=== PATIENT | male | born 1935 | race Caucasian/White ===

== ENCOUNTER → 2016-08-17 | Outpatient (CLI) | payer OTHER, BC | LOC: MMPC 09:00 | DX: J20.9 Acute bronchitis, unspecified (principal); R06.2 Wheezing; Z87.891 Personal history of nicotine dependence | CPT/HCPCS: 99213; G0463 ==

== ENCOUNTER → 2016-08-24 | Outpatient (CLI) | payer OTHER, BC | LOC: MMPC 09:00 | PROVIDERS: ATTEND Physician Assistant Medical | DX: R05 Cough (principal); R09.89 Other specified symptoms and signs involving the circulatory and respiratory systems; R50.9 Fever, unspecified | CPT/HCPCS: 99213; G0463 ==

== ENCOUNTER → 2016-09-08 | Outpatient (CLI) | payer OTHER, BC | LOC: MMPC 09:00 | DX: I10 Essential (primary) hypertension (principal); G25.81 Restless legs syndrome; E03.9 Hypothyroidism, unspecified; G47.30 Sleep apnea, unspecified; F32.9 Major depressive disorder, single episode, unspecified; F03.90 Unspecified dementia, unspecified severity, without behavioral disturbance, psychotic disturbance, mood disturbance, and anxiety | CPT/HCPCS: 99213; G0463 ==

== ENCOUNTER → 2017-01-06 | Outpatient (CLI) | payer OTHER, BC | LOC: MOB LAB 12:07 | DX: E03.9 Hypothyroidism, unspecified (principal); I10 Essential (primary) hypertension; E55.9 Vitamin D deficiency, unspecified; G47.30 Sleep apnea, unspecified; G25.81 Restless legs syndrome; F03.90 Unspecified dementia, unspecified severity, without behavioral disturbance, psychotic disturbance, mood disturbance, and anxiety; F32.9 Major depressive disorder, single episode, unspecified | CPT/HCPCS: 36415; 84443; 99213; G0463 ==

== ENCOUNTER → 2017-02-23 | Outpatient (CLI) | payer OTHER, BC ==
--- NOTE | 2017-02-23 11:41 | EKG ---
[address] [address] Measurements Intervals [place] Rate: 51 P: VT: 0 QRS: -33 QRSD: 93 T: -22 QT: 452 QTc: 430 Interpretive Statements SECOND DEGREE AV BLOCK NONSPECIFIC ST & T-WAVE ABNORMALITY No previous ECG available for comparison Electronically Signed On 02-23-17 13:23:44 MDT by Jamar Crabtree [id number]
[2017-02-23 11:51] LABS: BASOPHILS % (AUTO) 1.5 % (0-1); EOSINOPHILS # (AUTO) 0.18 10*3/UL; EOSINOPHILS % (AUTO) 2.7 % (0-8); HEMATOCRIT 44.2 % (42.0-52.0); HEMOGLOBIN 15.1 g/dL (14.0-18.0); LYMPHOCYTES # (AUTO) 1.54 10*3/uL; MEAN CORPUSCULAR HEMOGLOBIN 31.1 PG (27-31); MEAN CORPUSCULAR HGB CONC 34.2 g/dL (33-37); MEAN CORPUSCULAR VOLUME 91.1 FL (80-90); MEAN PLATELET VOLUME 9.8 FL (7.4-12.2); MONOCYTES # (AUTO) 0.56 10*3/UL (0.3-0.8); MONOCYTES % (AUTO) 8.5 % (5-15); NEUTROPHILS # (AUTO) 4.18 10*3/UL; NEUTROPHILS % (AUTO) 63.6 % (50-80); RED BLOOD COUNT 4.85 10^6/uL (4.70-6.10)
[2017-02-23 11:52] LABS: PLATELET MORPHOLOGY COMMENT NORMAL MORPHOLOGY (NORM); RBC MORPHOLOGY COMMENT NORMAL MORPHOLOGY (NORM); WBC MORPHOLOGY COMMENT NORMAL MORPHOLOGY (NORM)
[2017-02-23 11:57] LABS: BUN/CREATININE RATIO 22.22 (6-20); C-REACTIVE PROTEIN 0.7 mg/dL (0.0-0.9); CALCIUM 8.8 mg/dL (8.7-10.7)
[2017-02-23 12:07] LABS: CREATINE KINASE MB 2.77 NG/ML (0.00-5.00); TROPONIN I 0.017 ng/mL (< 0.040)
--- NOTE | 2017-02-23 12:59 | DI ---
PA /LATERAL CHEST X-RAY, 02/23/2017 11:06 AM : Clinical History: Left arm pain Previous Exam: None at this facility. There is no acute soft tissue or bony abnormality. Heart size is normal. Lungs are clear. Mediastinal structures are normal. There are no pulmonary nodules. IMPRESSION: Normal chest x-ray.
--- NOTE | 2017-02-23 13:00 | DI ---
XR HUMERUS MIN 2VW,02/23/2017 11:06 AM: Clinical History: Left arm pain Previous Exam: None at this facility. Findings: Multiple views of the left arm are obtained, and demonstrate anatomic alignment without fractures. Th e adjacent left lung and chest wall are unremarkable. Impression: Normal left humerus.
== END ==
LOC: MOB RAD 11:09
PROVIDERS: ATTEND Physician Assistant
DX: M79.622 Pain in left upper arm (principal); R07.9 Chest pain, unspecified; I44.1 Atrioventricular block, second degree
CPT/HCPCS: 71020; 73060; 80053; 82553; 83690; 84484; 85025; 86140; 93005; 93010

== ENCOUNTER → 2017-03-01 | Outpatient (CLI) | payer OTHER, BC ==
--- NOTE | 2017-03-03 13:15 | HOLTER ---
[facility] [place] Interpretive Statements Was ordered as a 48 hour holter and downloaded 24 hours of recorded tracings Twenty four hour holter recorded for left arm pain and prior 2nd degree AV block. Minimal activity recorded with no recorded symptoms. The average sinus rate was 56 with minimum rate of 37 at 4:30 AM and maximum sinus rate of 91 at 1:53 PM. There were 48728 beats recorded with 46987 normal beats. There were 428 multifocal singlet VPCs with 3 couplets and no runs. There were 316 PACs with 292 singlets and 12 pairs with no runs. Rare junctional beats were seen and there were no diagnostic pauses. Baseline tracings showed 1mm flat ST depression with prolonged QTC. No increase in ST depression was seen with exercise or faster heart rates. IMP: Abnormal 24 hour holter with occassional multifocal VPCs with rare couplets but no VT, and rare PACs with occassional pairs and no runs. Baseline 1mm ST depression was noted with prolonged QTc greater than 460 msec with no increase in ST depression at faster heart rates or exercise. No symptoms recorded. Recommend nuclear treadmill stress test. Electronically Signed On 03-03-17 17:31:31 MDT by Jamar Crabtree [id number]
== END ==
LOC: RT 10:29
DX: R94.31 Abnormal electrocardiogram [ECG] [EKG] (principal)
CPT/HCPCS: 93225; 93226; 93227

== ENCOUNTER 2018-05-19 19:16 | Inpatient (IN) ==
[2018-05-19] MEDS ORDERED: Sodium Chloride 0.9% 1,000 ML PRIMARY IV ONE ×2 (20:03→23:53)
[2018-05-19] MEDS ORDERED: IPRATROPIUM/ALBUTEROL SULFATE 3 ML NEB NEB ONE (20:03)
--- NOTE | 2018-05-19 20:25 | EKG ---
Measurements Intervals [place] Rate: 64 P: 19 MS: 217 QRS: -47 QRSD: 90 T: -1 QT: 433 QTc: 443 Interpretive Statements SINUS RHYTHM WITH MARKED SINUS ARRHYTHMIA WITH FIRST DEGREE AV BLOCK INFERIOR MYOCARDIAL INFARCTION [40+ ms Q WAVE AND/OR ST/T ABNORMALITY IN II/aVF], PROBABLY OLD Compared to ECG 11/30/2017 11:15:01 Myocardial infarct finding now present Sinus bradycardia no longer present Left-axis deviation no longer present T-wave abnormality no longer present Electronically Signed On 05-20-18 08:47:34 MDT by Matthew Hinton MD [id number]
[2018-05-19 20:29] LABS: BASOPHILS # (AUTO) 0.03 10*3/UL; BASOPHILS % (AUTO) 0.2 % (0-1); EOSINOPHILS % (AUTO) 0.6 % (0-8); Hematocrit [HCT] 42.9 % (42.0-52.0); Hemoglobin [HGB] 14.9 g/dL (14.0-18.0); LYMPHOCYTES # (AUTO) 1.64 10*3/uL; MEAN CORPUSCULAR HEMOGLOBIN 32.2 PG (27-31); MEAN CORPUSCULAR HGB CONC 34.7 g/dL (33-37); MEAN CORPUSCULAR VOLUME 92.7 FL (80-90); MEAN PLATELET VOLUME 9.2 FL (7.4-12.2); MONOCYTES # (AUTO) 1.51 10*3/UL (0.3-0.8); MONOCYTES % (AUTO) 9.7 % (5-15); NEUTROPHILS # (AUTO) 12.21 10*3/UL; NEUTROPHILS % (AUTO) 78.7 % (50-80); RED BLOOD COUNT 4.63 10^6/uL (4.70-6.10)
[2018-05-19 20:30] LABS: BILIRUBIN,URINE SMALL (NEG); CLARITY,URINE CLOUDY (CLEAR); COLOR,URINE RED (Y); GLUCOSE, URINE (UA) NEGATIVE (NEG); OCCULT BLOOD,URINE LARGE (NEG); PROTEIN,URINE 100 mg/dl (NEG); UROBILINOGEN,URINE 0.2 EU/dL (0.2)
[2018-05-19 20:31] LABS: PLATELET MORPHOLOGY COMMENT NORMAL MORPHOLOGY (NORM); RBC MORPHOLOGY COMMENT NORMAL MORPHOLOGY (NORM); WBC MORPHOLOGY COMMENT NORMAL MORPHOLOGY (NORM)
[2018-05-19 20:38] LABS: BLOOD UREA NITROGEN 18 mg/dL (7-22); BUN/CREATININE RATIO 10.58 (6-20); RBC,URINE >100 /hpf; SERUM ALBUMIN 4.1 g/dL (3.5-4.8); SQUAMOUS EPITHELIAL CELL,UR FEW; URINE SAMPLE TYPE VOIDED SPECIMEN; WBC,URINE 0-2
--- NOTE | 2018-05-19 21:25 | DI ---
PA /LATERAL CHEST, 05/19/2018 8:03 PM : Clinical History: Fever. Shortness of breath. Previous Exam: 11/16/2017. There is no acute soft tissue or bony abnormality. Heart size is normal. Lungs are clear. Mediastinal structures are normal. There is a moderate size hiatal hernia. There are no pulmonary nodules. Reading: Normal chest x-ray. There is a moderate sized hiatal hernia.
--- NOTE | 2018-05-19 23:18 | DI ---
EXAM: US Retroperitoneal Limited, Renal CLINICAL HISTORY: ITS.REASON hematuria Physician Notes: Tech Comments: TECHNIQUE: Real-time ultrasound of the retroperitoneum (limited) with image documentation. COMPARISON: No relevant prior studies available. FINDINGS: Right kidney: Normal in size, 12.1 cm long. No stones. No solid mass. No hydronephrosis. Left kidney: Normal in size, 12.3 cm long.. No stones. No solid mass. No hydronephrosis. Bladder: Significant urinary retention. Postvoid residual volume is 202. 25 cc. The wall is also irregular. This could reflect trabeculation from chronic outlet obstruction. IMPRESSION: Urinary retention. 202 cc of postvoid residual urine. Irregular bladder wall likely reflects trabeculation from chronic outlet obstruction. Neoplasm and cystitis are not completely excluded. No hydronephrosis.
--- NOTE | 2018-05-20 00:30 | PDOC ---
HPI - History of Present Illness Date of Service: 05/20/18 Time of Service: 01:00 Chief Complaint: Vomiting and possibly diarrhea with some abdominal pain History of Present Illness: This is an 83 years old male with medical history significant for history of dementia, hypertension, hypothyroidism, paroxysmal A. fib who was brought to the hospital because he was not well. The daughter said that this morning he was complaining from body aches some abdominal pain felt sick the son-in-law gave him Tylenol in addition to his medication came back and check on him still was not feeling well at 11:30. He gave additional Tylenol. At one point in time he vomited and also possibly had diarrhea we are not sure about when was that. He continued to not feel well didn't eat well today brought him to the urgent care and from there they sent into the ER. In the ER he was not complaining from any symptoms because of his dementia but the blood tests showed elevated white count, hypokalemia and elevated creatinine and there was blood in the urine. An ultrasound showed some trabeculation of the bladder wall. Because of her multiple abnormalities he was admitted to the hospital. Currently patient denying symptoms. History was obtained from the family. Past Medical History Medical History: 1. Alzheimer dementia. 2. History of TIA. 3. Hypertension. 4. History of aortic stenosis moderate severe. 5. History of sleep apnea. 6. History of hypothyroidism. 7. History of paroxysmal A. fib. 8. History of coronary artery disease Surgical History: History of tonsillectomy Family History: Reviewed an Not Pertinent Past Social History: Used to smoke, occasionally drink, no drugs. Lives in assisted living with his . Tobacco Use: Former Smoker Do you dip or chew tobacco: No In the Past 12 Months, Have Used or Abuse Any of the Following Substance: None Alcohol Use: Occasionally Medication / Allergies Home Medications: Home Medications 3 Medication Instructions Recorded Confirmed Type nitroglycerin 0.4 mg sublingual 0.4 mg SL Q5M PRN tab 07/07/17 05/19/18 History tablet atorvastatin 10 mg tablet 10 mg PO QDAY #90 tab 01/26/18 05/19/18 Rx gabapentin 300 mg capsule 300 mg PO QHS #90 cap 01/26/18 05/19/18 Rx isosorbide mononitrate ER 60 mg 60 mg PO QDAY #90 tab 01/26/18 05/19/18 Rx tablet,extended release 24 hr losartan 100 mg tablet 100 mg PO QDAY #90 tab 01/26/18 05/19/18 Rx omeprazole 40 mg capsule,delayed 40 mg PO QDAY #90 cap 01/26/18 05/19/18 Rx release potassium chloride ER 10 mEq 10 meq PO BID #180 tab 01/26/18 05/19/18 Rx tablet,extended release(part/cryst) rivastigmine 13.3 mg/24 hour 13.3 mg TOPICAL QDAY #90 patch 01/26/18 05/19/18 Rx transdermal patch sertraline 100 mg tablet 100 mg PO QDAY #90 tab 01/26/18 05/19/18 Rx aspirin 81 mg tablet,delayed 81 mg PO QDAY #90 tab 01/28/18 05/19/18 Rx release cetirizine 10 mg tablet 10 mg PO QDAY #90 tab 01/28/18 05/19/18 Rx montelukast 10 mg tablet 10 mg PO QDAY #90 tab 01/28/18 05/19/18 Rx memantine 10 mg tablet 10 mg PO BID #180 tab 02/14/18 05/19/18 Rx chlorthalidone 25 mg tablet 12.5 mg PO QDAY #45 tab 05/02/18 05/19/18 Rx levothyroxine 75 mcg tablet 75 mcg PO QDAY #90 tab 05/02/18 05/19/18 Rx Allergies/Adverse Reactions: Allergies 3 Allergy/AdvReac Type Severity Reaction Status Date / Time Penicillins Allergy Anaphylaxis Verified 05/19/18 20:35 Review of Systems - Review of Systems ROS Unobtainable: Due to Mental Status Exam - Vitals Vital Signs: Vital Signs Temperature 97.1 F Temperature Source Temporal Artery Scan Pulse Rate [Pulse Oximeter] 72 Pulse Rate 71 Respiratory Rate 18 Blood Pressure [Left Arm] 118/73 Pulse Ox 91 Oxygen Delivery Method Room Air Height 5 ft 11 in Weight 208 lb - General General Appearance: No Acute Distress, Cooperative - Head Head Exam: Normal Inspection - Eye Eye Exam: POSITIVE: Normal Appearance - ENT ENT Exam: POSITIVE: Normal Exam - Neck Neck Exam: Normal Inspection - Respiratory Respiratory Exam: POSITIVE: Clear to Auscultation - Bilaterally - Cardiovascular Cardiovascular Exam: POSITIVE: RRR, Systolic Murmur - GI/Abdominal GI/Abdominal Exam: POSITIVE: Normal Bowel Sounds, Non Tender, Non Distended, Soft, No Organomegaly - Rectal Rectal Exam: POSITIVE: Deferred - External Exam: POSITIVE: Deferred - Extremities Extremities Exam: POSITIVE: Normal Inspection - Back Back Exam: POSITIVE: Normal Inspection - Neurological Neurological Exam: POSITIVE: Alert, CN II-XII Intact, No Facial Droop, Speech Intact / Clear, Moves All Extremities Equally - Psychiatric Psychiatric Exam: POSITIVE: Normal Affect - Integumentary Integumentary Exam: POSITIVE: Normal Color Results - Labs CBC and BMP: 05/20/18 08:05 05/20/18 08:05 - EKG Data -: EKG Interpreted by Me Rate: Normal EKG Shows Normal: Sinus Rhythm - EKG Data EKG Interpretation: Other (Sinus rhythm with premature a tear complex. Old Q waves in the inferior leads) - Imaging Status: Report Reviewed by Me (Chest ray Normal chest x-ray. There is a moderate sized hiatal hernia. US Urinary retention. 202 cc of postvoid residual urine. Irregular bladder wall likely reflects trabeculation from chronic outlet obstruction. Neoplasm and cystitis are not completely excluded. No hydronephrosis.) Assessment and Plan - Patient Problems (1) Febrile illness Current Visit: Yes Status: Acute Comment: Unclear etiology. Because of the multiple lab abnormalities and difficulty in getting accurate information because of his underlying dementia, I think will give him a dose of antibiotics and wait for the culture result. We 'll give him some fluids. Code(s): R50.9 - Fever, unspecified (2) Dementia Current Visit: No Status: Chronic Onset Date: 09/19/13 Comment: Same med Code(s): F03.90 - Unspecified dementia without behavioral disturbance (3) Hematuria Current Visit: Yes Status: Acute Comment: Will order a CT likely tomorrow without contrast. Code(s): R31.9 - Hematuria, unspecified (4) HTN (hypertension) Current Visit: No Status: Chronic Comment: Same med Code(s): I10 - Essential (primary) hypertension (5) Hypothyroidism Current Visit: No Status: Chronic Onset Date: 09/19/13 Comment: Same med Code(s): E03.9 - Hypothyroidism, unspecified (6) Elevated d-dimer Current Visit: Yes Status: Acute Comment: I think this is secondary to the bleeding itself and possibly age. The history suggests an infection rather than a PE. Code(s): R79.89 - Other specified abnormal findings of blood chemistry (7) Troponin I above reference range Current Visit: Yes Status: Acute Comment: Unclear significance he is denying chest pain is no shortness of breath. EKG does not show acute changes. Will repeat it and he had been echocardiogram done before will try to get it from [place]. Code(s): R74.8 - Abnormal levels of other serum enzymes
[2018-05-20 00:50] VITALS: RESP 20
[2018-05-20] MEDS ORDERED: ONDANSETRON 4 MG/2 ML VIAL IVP PRN (01:25)
[2018-05-20] MEDS ORDERED: DOCUSATE 100 MG CAPSULE PO PRN (01:25)
[2018-05-20] MEDS ORDERED: LIDOCAINE W/ SODIUM BICARB 0.5 ML SYR SUBD PRN (01:25)
[2018-05-20] MEDS ORDERED: CALCIUM CARBONATE 500 MG (TUMS) CHEWABLE TABLET PO PRN (01:25)
[2018-05-20] MEDS ORDERED: Ertapenem Inj 1 GM in Sodium Chloride 0.9% 100 ML IV SCH (01:30)
[2018-05-20] MEDS: ACETAMINOPHEN 325 MG TABLET PO PRN ×3 (01:57→14:25)
--- NOTE | 2018-05-20 03:51 | PDOC ---
General Adult HPI - General Chief Complaint: Dyspnea Stated Complaint: "not feeling well", blood in urine, shortness of breath Date Seen by Provider: 05/19/18 Time Seen by Provider: 19:45 Source: POSITIVE: Patient, Other (Daughter and son-in-law) Exam Limitations: POSITIVE: No limitations Nurse's Notes Reviewed & Considered: Yes - History of Present Illness Initial Comment: The patient is an 83-year-old male who is brought to the emergency room by his daughter and son-in-law. Patient lives in an assisted living center with his . This morning, when the son-in-law came to visit the patient the patient reportedly told the son-in-law that "he doesn't feel good ". Patient reportedly has spent most of the day in bed. The staff of the assisted living center took the patient's temperature and it was reportedly 99.3F. Patient had an episode of vomiting in his bed and probably had a loose bowel movement earlier today as well. Son-in-law also states that the patient seemed to have some discomfort in the right lateral abdomen. The patient's daughter and son-in -law to the patient to the clinic, who sent the patient to the emergency room for further evaluation. The patient complains of generalized weakness; patient was thought to be having some wheezing by the son-in-law. Patient has a history of Alzheimer's, according to family members, and family members report that the patient rarely complains of anything and is always friendly and optimistic. History of high blood pressure, heart murmur and hypothyroidism. Have you received a tetanus shot in the past 10 years?: Yes Body Location Affected: REPORTS: Chest (Shortness of breath), Abdomen (One episode of vomiting and probably one episode of diarrhea), Other (Generalized weakness and "just not feeling right".) Timing: REPORTS: Constant Duration: <24 hours Severity: Moderate Quality: REPORTS: Other (Son-in-law reports that he believes the patient had some right lateral abdominal discomfort earlier today, but the patient has no abdominal discomfort presently) Context: REPORTS: None Modifying Factors: improves with: Vomiting (Times one) Similar Symptoms Previously: No Recent Care Received: REPORTS: Recently Seen (As above; seen in the clinic earlier today and then was sent to the emergency room for evaluation) Any Prior Injuries Related to Current Complaint?: No - Patient Home Medications Home Medications: Home Medications nitroglycerin 0.4 mg sublingual tablet 0.4 mg SL Q5M PRN tab 07/07/17 atorvastatin 10 mg tablet 10 mg PO QDAY #90 tab 01/26/18 gabapentin 300 mg capsule 300 mg PO QHS #90 cap 01/26/18 isosorbide mononitrate ER 60 mg tablet,extended release 24 hr 60 mg PO QDAY #90 tab 01/26/18 losartan 100 mg tablet 100 mg PO QDAY #90 tab 01/26/18 omeprazole 40 mg capsule,delayed release 40 mg PO QDAY #90 cap 01/26/18 potassium chloride ER 10 mEq tablet,extended release(part/cryst) 10 meq PO BID # 180 tab 01/26/18 rivastigmine 13.3 mg/24 hour transdermal patch 13.3 mg TOPICAL QDAY #90 patch sertraline 100 mg tablet 100 mg PO QDAY #90 tab 01/26/18 aspirin 81 mg tablet,delayed release 81 mg PO QDAY #90 tab 01/28/18 cetirizine 10 mg tablet 10 mg PO QDAY #90 tab 01/28/18 montelukast 10 mg tablet 10 mg PO QDAY #90 tab 01/28/18 memantine 10 mg tablet 10 mg PO BID #180 tab 02/14/18 chlorthalidone 25 mg tablet 12.5 mg PO QDAY #45 tab 05/02/18 levothyroxine 75 mcg tablet 75 mcg PO QDAY #90 tab 05/02/18 - Patient Allergies Allergies/Adverse Reactions: Allergies 3 Allergy/AdvReac Type Severity Reaction Status Date / Time Penicillins Allergy Anaphylaxis Verified 05/19/18 20:35 Past Medical History - heen HEENT History: Glaucoma, Macular Degeneration Cardiovascular History: Hypertension, CAD Respiratory History: Home CPAP Use Gastrointestinal History: Diverticulitis Additional Gastrointestinal History: BLEEDING DIVERTICULUM JANUARY 2013 Genitourinary History: Denies History Endocrine History: Hypothyroidism Musculoskeletal History: Denies History Prosthesis or Implant: No Neurological History: Alzheimer's Blood Disorders: Denies History Psychiatric History: Denies History History of Sexually Transmitted Diseases: No Cancer History: Denies History In Past Year Been Physically Harmed or Verbally Threatened: No History of MDRO: Unknown History of Other Communicable Diseases: No Tobacco Use: Former Smoker Alcohol Use: Rarely Type of alcohol normally used: Beer In the Past 12 Months, Have Used or Abuse Any Substance: None Previous Surgical History: Yes Type / Date of Surgery: inguinal hernia repair. TONSILLECTOMY. ADNOIDECTOMY Anesthesia Reactions: No Malignant Hyperthermia: No Significant Family History: No pertinent family hx Past Medical History Reviewed: Reviewed - No Changes ROS - Limitations ROS Limitations: No Limitations Constitution: REPORTS: Denies Symptoms Cardiovascular: REPORTS: Denies Cardiac Symptoms Respiratory: REPORTS: Shortness Of Breath Neurological: REPORTS: Denies Neuro Symptoms Gastrointestinal: REPORTS: Abdominal Pain (Possibly earlier today), Vomitting ( Times one), Diarrhea (Times one) Endocrine: REPORTS: Denies Symptoms Musculoskeletal: REPORTS: Denies MS Symptoms Genitourinary: REPORTS: Flank Pain (Possibly on the right earlier today) Eyes: REPORTS: Denies Symptoms ENT: REPORTS: Denies Symptoms Skin: REPORTS: Denies Skin Symptoms Lympathic: REPORTS: Denies Lympathic Symptoms Immunologic: POSITIVE: Denies Symptoms Psychiatric: POSITIVE: Confusion (Some chronic confusion due to dementia) General Adult Exam - General Appearance General Appearance: POSITIVE: Alert, Cooperative, No Acute Distress, No Evidence of Trauma, Other (Patient very pleasant and cooperative.) - HEENT HEENT: POSITIVE: Head Inspection Nml, Eyes Inspection Nml, Ears Inspection Nml, Nose Inspection Nml, Oral/Dental Inspect. Nml, Pharynx Inspect. Nml, PERRL, EOMI - Pupils Pupil Size: 3 mm: Bilateral (PERRLA) - Neck Neck: POSITIVE: Normal Inspection, Thyroid Normal - Respiratory Respiratory: POSITIVE: No Respiratory Distress, Chest Non-Tender, Rhonchi. NEGATIVE: Breath Sounds Normal - Cardiovascular Cardiovascular: POSITIVE: Regular Rate & Rhythm, No Gallop, PMI Normal, Decreased Pulse, No Pulse, Murmur (2/60 stolid ejection murmur precordium radiating into right sternal border, compatible with aortic stenosis. Patient has a known long-standing history of this murmur). NEGATIVE: No Murmur, Irregularly Irreg. Rhythm, Tachycardia, Occasional Extrasystoles, Frequent Extrasystoles, PMI Displaced Laterally, JVD Present, S3 Gallop, S4 Gallop, Bradycardia, Friction Rub Peripheral Pulses: Radial (R): 2+, Radial (L): 2+ - Abdomen Abdomen: Soft: (All Quadrants), Normal Bowel Sounds: (All Quadrants), Denies Tenderness: (All Quadrants), No Splenomegaly: (All Quadrants), No Hepatomegaly: (All Quadrants), No Guarding: (All Quadrants), No Rebound: (All Quadrants), No Palpable Pulse: (All Quadrants), No Palpabale Mass: (All Quadrants), No Distention: (All Quadrants), No Rigidity: (All Quadrants) - Back Back: POSITIVE: Normal Inspection - Skin Skin: POSITIVE: Normal Color, Warm, Dry, No Rash - Extremities Extremity: Non-Tender: (All Extremities), Normal ROM: (All Extremities), Normal Inspection: (All Extremities) - Neurological / Psychological Neurological: POSITIVE: Affect Apporpriate, Oriented X3, contact lens blocker and cutter Normal As Tested, Motor Normal, Sensation Normal General Adult Progress - Results Reviewed by me Xrays/CTs/US Reviewed by me: Yes Discussed with Radiologist: Yes Radiology Findings: Chest x-ray normal. Retroperitoneal ultrasound shows "irregular bladder wall, likely reflecting trabeculation from chronic outlet obstruction. Neoplasm and cystitis not completely ruled out ". Lab Results Reviewed by Me: Yes Lab Results:: Laboratory Results 3 05/19/18 05/19/18 05/19/18 20:25 20:25 20:25 WBC 15.52 H RBC 4.63 L Hgb 14.9 Hct 42.9 MCV 92.7 H MCH 32.2 H MCHC 34.7 RDW Std Deviation 45.7 RDW Coeff of Angel 13.7 Plt Count 216 MPV 9.2 Immature Gran % (Auto) 0.2 Neut % (Auto) 78.7 Lymph % (Auto) 10.6 [place] % (Auto) 9.7 Eos % (Auto) 0.6 Baso % (Auto) 0.2 Immature Gran # (Auto) 0.03 Neut # (Auto) 12.21 Lymph # (Auto) 1.64 [place] # (Auto) 1.51 H Eos # (Auto) 0.10 Baso # (Auto) 0.03 WBC Morphology Comment Normal morphology Plt Morphology Comment Normal morphology RBC Morph Comment Normal morphology D-Dimer Sodium Potassium Chloride Carbon Dioxide Anion Gap BUN Creatinine Estimated GFR BUN/Creatinine Ratio Glucose Calculated Osmolality Calcium Magnesium 2.1 Total Bilirubin AST ALT Alkaline Phosphatase Total Creatine Kinase Troponin I NT-Pro-B Natriuret Pep Total Protein Albumin Globulin Albumin/Globulin Ratio Ur Collection Type Voided specimen Urine Color Red A Urine Clarity Cloudy A Urine pH 7.0 Ur Specific [place] 1.020 Urine Protein 100 A Urine Glucose (UA) Negative Urine Ketones Negative Urine Occult Blood Large H Urine Nitrate Negative Urine Bilirubin Small Urine Urobilinogen 0.2 Ur Leukocyte Esterase Negative Urine RBC >100 A Urine WBC 0-2 Ur Squamous Epith Cells Few Ur Renal Epithelial Cell None Urine Crystals None Urine Bacteria None Urine Casts None Urine Mucus None Urine Trichomonas None Urine Yeast None Ur Culture Indicated? Culture not set 3 05/19/18 05/19/18 05/19/18 20:25 20:25 20:25 WBC RBC Hgb Hct MCV MCH MCHC RDW Std Deviation RDW Coeff of Angel Plt Count MPV Immature Gran % (Auto) Neut % (Auto) Lymph % (Auto) [place] % (Auto) Eos % (Auto) Baso % (Auto) Immature Gran # (Auto) Neut # (Auto) Lymph # (Auto) [place] # (Auto) Eos # (Auto) Baso # (Auto) WBC Morphology Comment Plt Morphology Comment RBC Morph Comment D-Dimer 3.56 H Sodium 138 Potassium 3.2 L Chloride 100 Carbon Dioxide 28 Anion Gap 10 BUN 18 Creatinine 1.7 H Estimated GFR Manager Event BUN/Creatinine Ratio 10.58 Glucose 123 H Calculated Osmolality 288.0 Calcium 8.6 L Magnesium Total Bilirubin 1.3 H AST 42 ALT 27 Alkaline Phosphatase 82 Total Creatine Kinase 242 H Troponin I NT-Pro-B Natriuret Pep Total Protein 7.3 Albumin 4.1 Globulin 3.2 Albumin/Globulin Ratio 1.20 L Ur Collection Type Urine Color Urine Clarity Urine pH Ur Specific [place] Urine Protein Urine Glucose (UA) Urine Ketones Urine Occult Blood Urine Nitrate Urine Bilirubin Urine Urobilinogen Ur Leukocyte Esterase Urine RBC Urine WBC Ur Squamous Epith Cells Ur Renal Epithelial Cell Urine Crystals Urine Bacteria Urine Casts Urine Mucus Urine Trichomonas Urine Yeast Ur Culture Indicated? 3 05/19/18 05/19/18 20:25 20:25 WBC RBC Hgb Hct MCV MCH MCHC RDW Std Deviation RDW Coeff of Angel Plt Count MPV Immature Gran % (Auto) Neut % (Auto) Lymph % (Auto) [place] % (Auto) Eos % (Auto) Baso % (Auto) Immature Gran # (Auto) Neut # (Auto) Lymph # (Auto) [place] # (Auto) Eos # (Auto) Baso # (Auto) WBC Morphology Comment Plt Morphology Comment RBC Morph Comment D-Dimer Sodium Potassium Chloride Carbon Dioxide Anion Gap BUN Creatinine Estimated GFR BUN/Creatinine Ratio Glucose Calculated Osmolality Calcium Magnesium Total Bilirubin AST ALT Alkaline Phosphatase Total Creatine Kinase Troponin I 0.077 H NT-Pro-B Natriuret Pep 2510 H Total Protein Albumin Globulin Albumin/Globulin Ratio Ur Collection Type Urine Color Urine Clarity Urine pH Ur Specific [place] Urine Protein Urine Glucose (UA) Urine Ketones Urine Occult Blood Urine Nitrate Urine Bilirubin Urine Urobilinogen Ur Leukocyte Esterase Urine RBC Urine WBC Ur Squamous Epith Cells Ur Renal Epithelial Cell Urine Crystals Urine Bacteria Urine Casts Urine Mucus Urine Trichomonas Urine Yeast Ur Culture Indicated? CBC and BMP: 05/19/18 20:25 05/19/18 20:25 EKG Interpreted/Reviewed By Me:: Yes (small Q waves in leads 3 and aVF; sinus arrhythmia) EKG Interpretation:: POSITIVE: Normal Rate, Normal Intervals, Normal [place], Normal ST/T. NEGATIVE: Normal Sinus Rhythm (Sinus arrhythmia), Normal QRS ( Small Q waves in leads), Abnormal EKG - Patient's Progress Pain Medication Addressed: POSITIVE: Not Applicable (Patient remained pain-free throughout his stay in the emergency room) School/Work Release Addressed: POSITIVE: Not Applicable Re-Examine Time: 23:00 Re-Examine Comment: Results of laboratory evaluation and radiologic evaluation discussed with patient and his family. I advised the patient and his family that I am not sure what the source of his hematuria is. I'm also concerned about his white blood cell count of 15,520 as well as his d-dimer 3.56 and BNP of 2510. Troponin is slightly elevated at 0.077 and creatinine is elevated at 1.7 with a BUN of 18. Review of patient's last clinic visit on 05/03/2018 shows that the patient is on apixaban, 5 mg twice daily. Recent laboratory values showed a creatinine of 1.0 and a BUN of 23. I'm not sure why the patient has these laboratory abnormalities, but I do think they need to be evaluated. Patient was given about 1250 mL of normal saline in the emergency room. He rested comfortably. Blood cultures were drawn. Patient has a DO NOT RESUSCITATE CODE STATUS. Case was discussed with Dr. Anaya and patient is admitted to Dr. Anaya for further evaluation. Status: POSITIVE: Unchanged, Re-Examined Antibiotics Given: No - Consult Consult (If Yes, Name of Consulting MD & Time Called): Yes (Dr. Anaya, [id number]) Consulting MD will see pt:: POSITIVE: [facility] [place] Admit Counseled: POSITIVE: Patient, Family, RE: Lab Results, RE: Radiology Results, RE : DX, RE: Need for F/U Patient Care Time - Estimated PCT Patient Care Time (In Minutes): 60 Vital Signs - Recent Vital Signs Vital Signs: Vital Signs (Last 8 hours) Temp Pulse Pulse Resp BP BP Pulse Ox 05/20/18 01:57 99.9 F H 05/20/18 01:05 99.9 F H 87 20 181/72 92 05/20/18 00:50 98.5 F 75 20 157/76 91 05/19/18 20:28 71 18 05/19/18 20:27 66 18 91 05/19/18 20:20 64 - VS Reviewed Vital Signs Reviewed: Yes Discharge Clinical Impression: Hematuria, Renal failure, Troponin I above reference range, D-dimer, elevated Discharge Disposition: Admit to Inpatient Condition: Stable Date Decision to Admit to Inpatient: 05/19/18 Time Decision to Admit to Inpatient: 23:00
[2018-05-20] MEDS ORDERED: LEVOTHYROXINE 75 MCG TABLET PO SCH (05:30)
[2018-05-20 08:23] LABS: BLOOD UREA NITROGEN 16 mg/dL (7-22); SERUM ALBUMIN 4.1 g/dL (3.5-4.8)
[2018-05-20 08:47] LABS: Hematocrit [HCT] 41.9 % (42.0-52.0); Hemoglobin [HGB] 14.2 g/dL (14.0-18.0); MEAN CORPUSCULAR HEMOGLOBIN 31.8 PG (27-31); MEAN CORPUSCULAR HGB CONC 33.9 g/dL (33-37); MEAN CORPUSCULAR VOLUME 93.9 FL (80-90); MEAN PLATELET VOLUME 9.3 FL (7.4-12.2); RED BLOOD COUNT 4.46 10^6/uL (4.70-6.10)
[2018-05-20] MEDS ORDERED: ATORVASTATIN 10 MG TABLET PO SCH (09:00)
[2018-05-20] MEDS ORDERED: Sertraline Tab 50 MG TAB PO SCH (09:00)
[2018-05-20] MEDS ORDERED: Potassium Chloride Tab 10 MEQ TAB PO SCH (09:00)
[2018-05-20] MEDS ORDERED: RIVASTIGMINE 13.3 MG TOPICAL SCH (09:00)
[2018-05-20] MEDS ORDERED: LOSARTAN 50 MG TABLET PO SCH (09:00)
[2018-05-20] MEDS ORDERED: ISOSORBIDE MONONITRATE 30 MG SR 24H TABLET PO SCH (09:00)
[2018-05-20] MEDS ORDERED: MEMANTINE 10 MG TABLET PO SCH (09:00)
[2018-05-20] MEDS ORDERED: Montelukast Tab 10 MG TAB PO SCH (09:00)
[2018-05-20] MEDS ORDERED: OMEPRAZOLE 40 MG CAPSULE PO SCH (09:00)
[2018-05-20 09:17] LABS: BAND NEUTROPHILS % 1 % (0-10); BASOPHILS % (MANUAL) 0 % (0-1); EOSINOPHILS % (MANUAL) 0 % (0-8); METAMYELOCYTES % 0 %; MONOCYTES % (MANUAL) 2 % (0-12); MYELOCYTES % 0 %; NEUTROPHILS % (MANUAL) 88 % (50-80); PLATELET MORPHOLOGY COMMENT NORMAL MORPHOLOGY (NORM); PROMYELOCYTES % 0 %
[2018-05-20 09:18] LABS: RBC MORPHOLOGY COMMENT NORMAL MORPHOLOGY (NORM); WBC MORPHOLOGY COMMENT SEE COMMENTS (NORM)
--- NOTE | 2018-05-20 12:33 | DI ---
CT CHEST SCAN WITHOUT IV CONTRAST, 05/20/2018 9:33 AM : Clinical History: Fever. Elevated white count. Body aches. Previous Exam: None at this facility. Scans are performed from the base of the neck to the lower lung bases without IV contrast. Sagittal a nd coronal images using non MIPS and MIPS technique are generated. The base of the neck and thoracic inlet are normal. There are no abnormal axillary, supraclavicular, mediastinal, or hilar nodes. The ascending aorta has an AP and transverse diameter of 38 x 39 mm. Den se calcifications are present in the aortic valve. The heart is normal. The lungs are clear and there are no pulmonary nodules or masses. READIN. No acute infiltrate or effusion is present. 2. There are dense calcifications in the region of the aortic valve. 3. 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
--- NOTE | 2018-05-20 12:41 | DI ---
CT ABDOMEN SCAN WITHOUT IV CONTRAST, 05/20/2018 9:34 AM : Clinical History: Fever. Elevated white count. Vomiting. Previous Exam: 06/20/2013. Scans are performed from the lower lung bases through the liver and kidneys without IV contrast. Sagi ttal and coronal reformatted images are generated. No oral or rectal contrast was ordered. The lung bases are clear. The liver is normal. The gallbladder is grossly normal. There is no abnorma lity of the spleen, pancreas, and adrenal glands. Both kidneys are of normal size, shape, and contour . There is inflammatory/infiltrative change surrounding both kidneys but more so on the right side th an the left. There is right hydronephrosis and hydroureter. The right collecting system and ureter marshall ve increased density without definite calcifications. This increased density may represent blood and less likely milk of calcium deposits. The perinephric stranding suggests there may be extravasation o f urine. The left kidney shows no hydronephrosis or hydroureter. There is no renal or ureteral calcul us. There are no abnormal retrocrural or periaortic nodes. No ascites is present. READIN. Right hydronephrosis and hydroureter with probable extravasation of urine. The fluid in the right collecting system and ureter is of abnormally increased density in this may represent blood and less likely milk of calcium deposition. No obstructing calculus is seen. 2. The left kidney and ureter are normal. CT PELVIS SCAN WITHOUT IV CONTRAST, 05/20/2018 9:34 AM : Clinical History: See above. Previous Exam: 06/20/2013. Scans are performed from the inferior margin of the liver and kidneys to the symphysis pubis without IV contrast. Scans through the lower abdomen and pelvis show no masses or abnormal fluid collections. There is no adenopathy. The appendix is normal. The small bowel, terminal ileum, and ileocecal valve are normal. The colon is also normal. There are no hernias. READING: Normal CT pelvis scan without IV contrast.
[2018-05-20 14:09] VITALS: BP 135/56; TEMP 98.4; O2SAT 92
--- NOTE | 2018-05-20 14:32 | DCSUMMARY ---
Hospitalization Summary Admit Date: 05/20/2018 Discharge Date: 05/20/18 Hospital Course: Transfer diagnoses 1. Right hydronephrosis and hydroureter with probable extravasation of urine. The fluid in the right collecting system and ureter is of abnormally increased density and this may represent blood. 2. History of dementia 3. Hypertension 4. History of paroxysmal A. fib 5. History of TIA 6. History of aortic stenosis moderate to severe 7. History of hypothyroidism 8. History of coronary artery disease 9. Trabeculation of the bladder wall Hospital course This is a 83 years old male with medical history significant for history of dementia, hypertension, hypothyroidism and paroxysmal A. fib who was brought to the hospital because he was not well. The daughter said that the morning of admission he was complaining from body aches some abdominal pain felt sick his son-in-law gave him Tylenol in addition to his medication he came back and checked on him and he was still not feeling well. He was given additional Tylenol. At one point in time he vomited and question also of diarrhea although we are not sure about that. He continued to not feel well did not eat well so they brought him to the urgent care and from there he was sent to the ER. The patient himself wasn't complaining from symptoms because of his dementia but the blood tests showed elevated white count, hypokalemia and elevated creatinine and there was blood in the urine. An ultrasound of the kidneys showed some trabeculation of the bladder wall. We admitted the patient to the hospital we put him on IV fluid After taken blood culture we started him empirically on antibiotics with ertepenem. His exam was apart from the dementia and him looking tired was unremarkable there was no tenderness in his abdomen. This morning his white count went higher to 19,000. He continued to have some low-grade temperature so we did a CT of his abdomen and chest. The CT of the chest showed heavy calcification of the aortic valve, the CT of the abdomen showed right hydronephrosis and hydroureter with probable extravasation of urine. Because of the findings I spoke with Dr. Ba and he reviewed the CT and he suggested transfer for stent insertion. I did speak with the family they were agreeable with this and he will be transferred. Although the notes from his physician and drug abuse worker discuss him being on eliquis, the daughter said he is not on it. The picture that she showed me of the list of his medication from the pillbox does not include that. He is only on aspirin. Laboratory Results 05/19/18 05/19/18 05/19/18 Range/Units 20:25 20:25 20:25 WBC 15.52 H (4.8-10.8) 10^3/uL RBC 4.63 L (4.70-6.10) 10^6/uL Hgb 14.9 (14.0-18.0) g/dL Hct 42.9 (42.0-52.0) % MCV 92.7 H (80-90) FL MCH 32.2 H (27-31) PG MCHC 34.7 (33-37) g/dL RDW Std Deviation 45.7 (39-50) fL RDW Coeff of Angel 13.7 (11.5-14.5) % Plt Count 216 (140-350) 10*3/uL MPV 9.2 (7.4-12.2) FL Immature Gran % (Auto) 0.2 (0-5) % Neut % (Auto) 78.7 (50-80) % Lymph % (Auto) 10.6 (10-50) % [place] % (Auto) 9.7 (5-15) % Eos % (Auto) 0.6 (0-8) % Baso % (Auto) 0.2 (0-1) % Immature Gran # (Auto) 0.03 10*3/UL Neut # (Auto) 12.21 10*3/UL Lymph # (Auto) 1.64 10*3/uL [place] # (Auto) 1.51 H (0.3-0.8) 10*3/UL Eos # (Auto) 0.10 10*3/UL Baso # (Auto) 0.03 10*3/UL Neutrophils % (Manual) (50-80) % Band Neutrophils % (0-10) % Lymphocytes % (Manual) (10-50) % Monocytes % (Manual) (0-12) % Eosinophils % (Manual) (0-8) % Basophils % (Manual) (0-1) % Metamyelocytes % % Myelocytes % % Promyelocytes % % Blast Cells (0-1) % WBC Morphology Comment Normal morphology (NORM) Plt Morphology Comment Normal morphology (NORM) RBC Morph Comment Normal morphology (NORM) D-Dimer (0.00-0.59) mg/L Sodium (135-145) meq/L Potassium (3.8-5.2) meq/L Chloride (98-112) meq/L Carbon Dioxide (23-33) meq/L Anion Gap (5-20) BUN (7-22) mg/dL Creatinine (0.70-1.50) mg/dL Estimated GFR BUN/Creatinine Ratio (6-20) Glucose (78-110) mg/dL Calculated Osmolality (267-292) mOsm/kg Calcium (8.7-10.7) mg/dL Magnesium 2.1 (1.6-2.4) mg/dL Total Bilirubin (0.3-1.2) mg/dL AST (21-57) IU/L ALT (21-72) IU/L Alkaline Phosphatase (38-126) IU/L Total Creatine Kinase (55-170) IU/L Troponin I (< 0.040) ng/mL NT-Pro-B Natriuret Pep (0-450) PG/ML Total Protein (6.1-8.0) g/dL Albumin (3.5-4.8) g/dL Globulin (2.50-4.10) g/dL Albumin/Globulin Ratio (1.3-2.0) mg/g Ur Collection Type Voided specimen Urine Color Red A (Y) Urine Clarity Cloudy A (CLEAR) Urine pH 7.0 (5.0-8.5) Ur Specific [place] 1.020 (1.005-1.030) Urine Protein 100 A (NEG) mg/dl Urine Glucose (UA) Negative (NEG) mg/dL Urine Ketones Negative (NEG) Urine Occult Blood Large H (NEG) Urine Nitrate Negative (NEG) Urine Bilirubin Small (NEG) Urine Urobilinogen 0.2 (0.2) EU/dL Ur Leukocyte Esterase Negative (NEG) Urine RBC >100 A (NONE) /hpf Urine WBC 0-2 (NONE) Ur Squamous Epith Cells Few (NONE) Ur Renal Epithelial Cell None (NONE) Urine Crystals None Urine Bacteria None (NONE) Urine Casts None (NONE) Urine Mucus None (NONE) Urine Trichomonas None (NONE) Urine Yeast None (NONE) Ur Culture Indicated? Culture not set 05/19/18 05/19/18 05/19/18 Range/Units 20:25 20:25 20:25 WBC (4.8-10.8) 10^3/uL RBC (4.70-6.10) 10^6/uL Hgb (14.0-18.0) g/dL Hct (42.0-52.0) % MCV (80-90) FL MCH (27-31) PG MCHC (33-37) g/dL RDW Std Deviation (39-50) fL RDW Coeff of Angel (11.5-14.5) % Plt Count (140-350) 10*3/uL MPV (7.4-12.2) FL Immature Gran % (Auto) (0-5) % Neut % (Auto) (50-80) % Lymph % (Auto) (10-50) % [place] % (Auto) (5-15) % Eos % (Auto) (0-8) % Baso % (Auto) (0-1) % Immature Gran # (Auto) 10*3/UL Neut # (Auto) 10*3/UL Lymph # (Auto) 10*3/uL [place] # (Auto) (0.3-0.8) 10*3/UL Eos # (Auto) 10*3/UL Baso # (Auto) 10*3/UL Neutrophils % (Manual) (50-80) % Band Neutrophils % (0-10) % Lymphocytes % (Manual) (10-50) % Monocytes % (Manual) (0-12) % Eosinophils % (Manual) (0-8) % Basophils % (Manual) (0-1) % Metamyelocytes % % Myelocytes % % Promyelocytes % % Blast Cells (0-1) % WBC Morphology Comment (NORM) Plt Morphology Comment (NORM) RBC Morph Comment (NORM) D-Dimer 3.56 H (0.00-0.59) mg/L Sodium 138 (135-145) meq/L Potassium 3.2 L (3.8-5.2) meq/L Chloride 100 (98-112) meq/L Carbon Dioxide 28 (23-33) meq/L Anion Gap 10 (5-20) BUN 18 (7-22) mg/dL Creatinine 1.7 H (0.70-1.50) mg/dL Estimated GFR Reservation Sales Agent BUN/Creatinine Ratio 10.58 (6-20) Glucose 123 H (78-110) mg/dL Calculated Osmolality 288.0 (267-292) mOsm/kg Calcium 8.6 L (8.7-10.7) mg/dL Magnesium (1.6-2.4) mg/dL Total Bilirubin 1.3 H (0.3-1.2) mg/dL AST 42 (21-57) IU/L ALT 27 (21-72) IU/L Alkaline Phosphatase 82 (38-126) IU/L Total Creatine Kinase 242 H (55-170) IU/L Troponin I (< 0.040) ng/mL NT-Pro-B Natriuret Pep (0-450) PG/ML Total Protein 7.3 (6.1-8.0) g/dL Albumin 4.1 (3.5-4.8) g/dL Globulin 3.2 (2.50-4.10) g/dL Albumin/Globulin Ratio 1.20 L (1.3-2.0) mg/g Ur Collection Type Urine Color (Y) Urine Clarity (CLEAR) Urine pH (5.0-8.5) Ur Specific [place] (1.005-1.030) Urine Protein (NEG) mg/dl Urine Glucose (UA) (NEG) mg/dL Urine Ketones (NEG) Urine Occult Blood (NEG) Urine Nitrate (NEG) Urine Bilirubin (NEG) Urine Urobilinogen (0.2) EU/dL Ur Leukocyte Esterase (NEG) Urine RBC (NONE) /hpf Urine WBC (NONE) Ur Squamous Epith Cells (NONE) Ur Renal Epithelial Cell (NONE) Urine Crystals Urine Bacteria (NONE) Urine Casts (NONE) Urine Mucus (NONE) Urine Trichomonas (NONE) Urine Yeast (NONE) Ur Culture Indicated? 05/19/18 05/19/18 05/20/18 Range/Units 20:25 20:25 08:05 WBC 19.51 H (4.8-10.8) 10^3/uL RBC 4.46 L (4.70-6.10) 10^6/uL Hgb 14.2 (14.0-18.0) g/dL Hct 41.9 L (42.0-52.0) % MCV 93.9 H (80-90) FL MCH 31.8 H (27-31) PG MCHC 33.9 (33-37) g/dL RDW Std Deviation 45.8 (39-50) fL RDW Coeff of Angel 13.8 (11.5-14.5) % Plt Count 200 (140-350) 10*3/uL MPV 9.3 (7.4-12.2) FL Immature Gran % (Auto) (0-5) % Neut % (Auto) (50-80) % Lymph % (Auto) (10-50) % [place] % (Auto) (5-15) % Eos % (Auto) (0-8) % Baso % (Auto) (0-1) % Immature Gran # (Auto) 10*3/UL Neut # (Auto) 10*3/UL Lymph # (Auto) 10*3/uL [place] # (Auto) (0.3-0.8) 10*3/UL Eos # (Auto) 10*3/UL Baso # (Auto) 10*3/UL Neutrophils % (Manual) 88 H (50-80) % Band Neutrophils % 1 (0-10) % Lymphocytes % (Manual) 9 L (10-50) % Monocytes % (Manual) 2 (0-12) % Eosinophils % (Manual) 0 (0-8) % Basophils % (Manual) 0 (0-1) % Metamyelocytes % 0 % Myelocytes % 0 % Promyelocytes % 0 % Blast Cells 0 (0-1) % WBC Morphology Comment See comments (NORM) Plt Morphology Comment Normal morphology (NORM) RBC Morph Comment Normal morphology (NORM) D-Dimer (0.00-0.59) mg/L Sodium (135-145) meq/L Potassium (3.8-5.2) meq/L Chloride (98-112) meq/L Carbon Dioxide (23-33) meq/L Anion Gap (5-20) BUN (7-22) mg/dL Creatinine (0.70-1.50) mg/dL Estimated GFR BUN/Creatinine Ratio (6-20) Glucose (78-110) mg/dL Calculated Osmolality (267-292) mOsm/kg Calcium (8.7-10.7) mg/dL Magnesium (1.6-2.4) mg/dL Total Bilirubin (0.3-1.2) mg/dL AST (21-57) IU/L ALT (21-72) IU/L Alkaline Phosphatase (38-126) IU/L Total Creatine Kinase (55-170) IU/L Troponin I 0.077 H (< 0.040) ng/mL NT-Pro-B Natriuret Pep 2510 H (0-450) PG/ML Total Protein (6.1-8.0) g/dL Albumin (3.5-4.8) g/dL Globulin (2.50-4.10) g/dL Albumin/Globulin Ratio (1.3-2.0) mg/g Ur Collection Type Urine Color (Y) Urine Clarity (CLEAR) Urine pH (5.0-8.5) Ur Specific [place] (1.005-1.030) Urine Protein (NEG) mg/dl Urine Glucose (UA) (NEG) mg/dL Urine Ketones (NEG) Urine Occult Blood (NEG) Urine Nitrate (NEG) Urine Bilirubin (NEG) Urine Urobilinogen (0.2) EU/dL Ur Leukocyte Esterase (NEG) Urine RBC (NONE) /hpf Urine WBC (NONE) Ur Squamous Epith Cells (NONE) Ur Renal Epithelial Cell (NONE) Urine Crystals Urine Bacteria (NONE) Urine Casts (NONE) Urine Mucus (NONE) Urine Trichomonas (NONE) Urine Yeast (NONE) Ur Culture Indicated? 05/20/18 05/20/18 Range/Units 08:05 08:05 WBC (4.8-10.8) 10^3/uL RBC (4.70-6.10) 10^6/uL Hgb (14.0-18.0) g/dL Hct (42.0-52.0) % MCV (80-90) FL MCH (27-31) PG MCHC (33-37) g/dL RDW Std Deviation (39-50) fL RDW Coeff of Angel (11.5-14.5) % Plt Count (140-350) 10*3/uL MPV (7.4-12.2) FL Immature Gran % (Auto) (0-5) % Neut % (Auto) (50-80) % Lymph % (Auto) (10-50) % [place] % (Auto) (5-15) % Eos % (Auto) (0-8) % Baso % (Auto) (0-1) % Immature Gran # (Auto) 10*3/UL Neut # (Auto) 10*3/UL Lymph # (Auto) 10*3/uL [place] # (Auto) (0.3-0.8) 10*3/UL Eos # (Auto) 10*3/UL Baso # (Auto) 10*3/UL Neutrophils % (Manual) (50-80) % Band Neutrophils % (0-10) % Lymphocytes % (Manual) (10-50) % Monocytes % (Manual) (0-12) % Eosinophils % (Manual) (0-8) % Basophils % (Manual) (0-1) % Metamyelocytes % % Myelocytes % % Promyelocytes % % Blast Cells (0-1) % WBC Morphology Comment (NORM) Plt Morphology Comment (NORM) RBC Morph Comment (NORM) D-Dimer (0.00-0.59) mg/L Sodium 140 (135-145) meq/L Potassium 3.4 L (3.8-5.2) meq/L Chloride 104 (98-112) meq/L Carbon Dioxide 25 (23-33) meq/L Anion Gap 11 (5-20) BUN 16 (7-22) mg/dL Creatinine 1.6 H (0.70-1.50) mg/dL Estimated GFR Reservation Sales Agent BUN/Creatinine Ratio 10.00 (6-20) Glucose 111 H (78-110) mg/dL Calculated Osmolality 291.0 (267-292) mOsm/kg Calcium 8.4 L (8.7-10.7) mg/dL Magnesium (1.6-2.4) mg/dL Total Bilirubin 1.7 H (0.3-1.2) mg/dL AST 57 (21-57) IU/L ALT 22 (21-72) IU/L Alkaline Phosphatase 79 (38-126) IU/L Total Creatine Kinase (55-170) IU/L Troponin I 0.109 H (< 0.040) ng/mL NT-Pro-B Natriuret Pep (0-450) PG/ML Total Protein 7.3 (6.1-8.0) g/dL Albumin 4.1 (3.5-4.8) g/dL Globulin 3.2 (2.50-4.10) g/dL Albumin/Globulin Ratio 1.20 L (1.3-2.0) mg/g Ur Collection Type Urine Color (Y) Urine Clarity (CLEAR) Urine pH (5.0-8.5) Ur Specific [place] (1.005-1.030) Urine Protein (NEG) mg/dl Urine Glucose (UA) (NEG) mg/dL Urine Ketones (NEG) Urine Occult Blood (NEG) Urine Nitrate (NEG) Urine Bilirubin (NEG) Urine Urobilinogen (0.2) EU/dL Ur Leukocyte Esterase (NEG) Urine RBC (NONE) /hpf Urine WBC (NONE) Ur Squamous Epith Cells (NONE) Ur Renal Epithelial Cell (NONE) Urine Crystals Urine Bacteria (NONE) Urine Casts (NONE) Urine Mucus (NONE) Urine Trichomonas (NONE) Urine Yeast (NONE) Ur Culture Indicated? Transfer instruction Diet nothing by mouth for now Activity as started Medications Active Medications Acetaminophen (Tylenol) 650 mg PO Q6H PRN PRN Reason: Pain or Fever Last Admin: 05/20/18 14:25 Dose: 650 mg Atorvastatin Calcium (Lipitor) 10 mg PO DAILY [facility] Last Admin: 05/20/18 08:30 Dose: 10 mg Calcium Carbonate (Tums) 1 - 2 tab PO Q6H PRN PRN Reason: Heartburn Docusate Sodium (Colace) 100 mg PO BID PRN PRN Reason: Constipation Sodium Chloride (Normal Saline 0.9%) 25 mls @ 200 mls/hr IV .Post Infusion PRN PRN Reason: No Primary IV for Flush ONLY Potassium Chloride/Sodium Chloride (Pot Chl 20meq + Ns) 1,000 mls @ 100 mls/hr PRIMARY IV .Q10H [facility] Last Admin: 05/20/18 11:53 Dose: 100 mls/hr Ertapenem 1 gm/ Sodium (Chloride) 100 mls @ 200 mls/hr IV Q24H [facility] Last Admin: 05/20/18 01:51 Dose: 200 mls/hr Isosorbide Mononitrate (Imdur) 60 mg PO DAILY@0900 [facility] Last Admin: 05/20/18 08:30 Dose: 60 mg Levothyroxine Sodium (Synthroid) 75 mcg PO DAILY@0530 [facility] Last Admin: 05/20/18 04:29 Dose: 75 mcg Lidocaine HCl (Lidocaine Buffered Inj) 0.5 ml SUBD ONCE PRN PRN Reason: IV Starts Losartan Potassium (Cozaar) 100 mg PO DAILY [facility] Last Admin: 05/20/18 08:28 Dose: 100 mg Memantine (Namenda) 10 mg PO BID [facility] Last Admin: 05/20/18 08:30 Dose: 10 mg Montelukast Sodium (Singulair) 10 mg PO DAILY [facility] Last Admin: 05/20/18 08:30 Dose: 10 mg Non-Formulary Medication (Rivastigmine [Exelon]) 13.3 mg TOPICAL DAILY [facility] Last Admin: 05/20/18 14:26 Dose: 13.3 mg Omeprazole (Prilosec) 40 mg PO DAILY [facility] Last Admin: 05/20/18 08:30 Dose: 40 mg Ondansetron HCl (Zofran Inj) 4 mg IVP Q4H PRN PRN Reason: NAUSEA / VOMITING Potassium Chloride (Klor-Con) 10 meq PO BID [facility] Last Admin: 05/20/18 08:30 Dose: 10 meq Sertraline HCl (Zoloft) 100 mg PO DAILY [facility] Last Admin: 05/20/18 08:30 Dose: 100 mg Follow-up per [facility] [place], [place] post discharge. Condition at transfer was stable for transfer Exam - Vitals Vital Signs: Vital Signs Temperature 98.4 F Temperature Source Oral Pulse Rate [Pulse Oximeter] 56 Pulse Rate 60 Respiratory Rate 20 Blood Pressure [Left Arm] 135/56 Blood Pressure 157/76 Pulse Ox 92 Oxygen Delivery Method Room Air Height 5 ft 11 in Weight 208 lb 4 oz - General General Appearance: No Acute Distress, Cooperative - Head Head Exam: Normal Inspection - Eye Eye Exam: POSITIVE: Normal Appearance - ENT ENT Exam: POSITIVE: Normal Exam - Neck Neck Exam: Normal Inspection - Respiratory Respiratory Exam: POSITIVE: Clear to Auscultation - Bilaterally - Cardiovascular Cardiovascular Exam: POSITIVE: RRR - GI/Abdominal GI/Abdominal Exam: POSITIVE: Normal Bowel Sounds, Non Tender, Non Distended, Soft, No Organomegaly - Rectal Rectal Exam: POSITIVE: Deferred - External Exam: POSITIVE: Deferred - Extremities Extremities Exam: POSITIVE: Normal Inspection - Neurological Neurological Exam: POSITIVE: Alert, CN II-XII Intact, No Facial Droop, Speech Intact / Clear - Psychiatric Psychiatric Exam: POSITIVE: Normal Affect Patient Problems - Patient Problem List (1) Febrile illness Status: Acute Code(s): R50.9 - Fever, unspecified Category: Medical (2) Dementia Status: Chronic Onset Date: 09/19/13 Code(s): F03.90 - Unspecified dementia without behavioral disturbance Category: Medical (3) Hematuria Status: Acute Code(s): R31.9 - Hematuria, unspecified Category: Medical (4) HTN (hypertension) Status: Chronic Code(s): I10 - Essential (primary) hypertension Category: Medical (5) Hypothyroidism Status: Chronic Onset Date: 09/19/13 Code(s): E03.9 - Hypothyroidism, unspecified Category: Medical (6) Elevated d-dimer Status: Acute Code(s): R79.89 - Other specified abnormal findings of blood chemistry Category: Medical (7) Troponin I above reference range Status: Acute Code(s): R74.8 - Abnormal levels of other serum enzymes Category: Medical
== END 2018-05-20 15:01 | disposition short-term general hospital (02) | DRG 694 ==
LOC: ER 19:16 → MED/SURG 05-20 00:13
PROVIDERS: ADMIT Internal Medicine; ATTEND Internal Medicine

== ENCOUNTER 2019-04-19 17:42 | Inpatient (IN) ==
[2019-04-19] MEDS ORDERED: Acetaminophen 1000mg Inj 1,000 MG/100 ML VIAL IV ONE (18:25)
[2019-04-19] MEDS ORDERED: Sodium Chloride 0.9% 1,000 ML PRIMARY IV ONE (18:25)
[2019-04-19 19:04] LABS: BASOPHILS # (AUTO) 0.07 10*3/UL; BASOPHILS % (AUTO) 0.5 % (0-1); EOSINOPHILS # (AUTO) 0.15 10*3/UL; EOSINOPHILS % (AUTO) 1.1 % (0-8); Hematocrit [HCT] 39.9 % (42.0-52.0); Hemoglobin [HGB] 12.9 g/dL (14.0-18.0); LYMPHOCYTES # (AUTO) 1.21 10*3/uL; MEAN CORPUSCULAR HGB CONC 32.3 g/dL (33-37); MEAN CORPUSCULAR VOLUME 98.3 FL (80-90); MEAN PLATELET VOLUME 9.7 FL (7.4-12.2); MONOCYTES # (AUTO) 1.12 10*3/UL (0.3-0.8); MONOCYTES % (AUTO) 8.5 % (5-15); NEUTROPHILS # (AUTO) 10.58 10*3/UL; NEUTROPHILS % (AUTO) 80.2 % (50-80); PLATELET MORPHOLOGY COMMENT NORMAL MORPHOLOGY (NORM); RBC MORPHOLOGY COMMENT NORMAL MORPHOLOGY (NORM); RED BLOOD COUNT 4.06 10^6/uL (4.70-6.10); WBC MORPHOLOGY COMMENT NORMAL MORPHOLOGY (NORM)
[2019-04-19 19:07] LABS: VENOUS PH 7.41 (7.32-7.42)
[2019-04-19 19:13] LABS: SERUM ALBUMIN 4.3 g/dL (3.5-4.8)
[2019-04-19 19:17] LABS: BILIRUBIN,URINE NEGATIVE (NEG); CLARITY,URINE CLEAR (CLEAR); COLOR,URINE YELLOW (Y); GLUCOSE, URINE (UA) NEGATIVE (NEG); OCCULT BLOOD,URINE Trace-intact (NEG); PROTEIN,URINE TRACE mg/dl (NEG)
[2019-04-19 19:22] LABS: URINE SAMPLE TYPE CLEAN CATCH URINE
[2019-04-19 19:23] LABS: BACTERIA,URINE FEW; RENAL EPITHELIAL CELLS,URINE RARE; SQUAMOUS EPITHELIAL CELL,UR FEW; WBC,URINE 40-60
[2019-04-19] MEDS ORDERED: Lactated Ringers 1,000 ML PRIMARY IV ONE (21:41)
[2019-04-19] MEDS ORDERED: ONDANSETRON 4 MG/2 ML VIAL IVP PRN (21:44)
[2019-04-19] MEDS ORDERED: LIDOCAINE W/ SODIUM BICARB 0.5 ML SYR SUBD PRN (21:44)
[2019-04-19] MEDS ORDERED: cefTRIAXone Inj 2 GM in Sodium Chloride 0.9% 100 ML IV SCH (21:44)
[2019-04-19] MEDS ORDERED: NITROGLYCERIN 0.4 MG SL TAB (BOTTLE OF 3) SL PRN (21:44)
[2019-04-19] MEDS: Potassium Chloride Tab 10 MEQ TAB PO SCH (22:38)
[2019-04-19] MEDS: GABAPENTIN 300 MG CAPSULE PO SCH (22:38)
[2019-04-19] MEDS: MEMANTINE 10 MG TABLET PO SCH (22:38)
[2019-04-19] MEDS: HEPARIN 5000 UNIT/1 ML SUBCUT SCH (22:40)
[2019-04-20] MEDS: Cefepime Inj 2 GM in Sodium Chloride 0.9% 100 ML IV SCH (01:30)
[2019-04-20] MEDS: LEVOTHYROXINE 75 MCG TABLET PO SCH (04:38)
[2019-04-20] MEDS: HEPARIN 5000 UNIT/1 ML SUBCUT SCH ×3 (04:58→23:11)
[2019-04-20 05:35] LABS: BASOPHILS # (AUTO) 0.05 10*3/UL; BASOPHILS % (AUTO) 0.5 % (0-1); EOSINOPHILS # (AUTO) 0.26 10*3/UL; EOSINOPHILS % (AUTO) 2.4 % (0-8); Hematocrit [HCT] 38.4 % (42.0-52.0); Hemoglobin [HGB] 12.3 g/dL (14.0-18.0); LYMPHOCYTES # (AUTO) 1.45 10*3/uL; MEAN CORPUSCULAR VOLUME 98.7 FL (80-90); MONOCYTES # (AUTO) 1.04 10*3/UL (0.3-0.8); MONOCYTES % (AUTO) 9.5 % (5-15); NEUTROPHILS % (AUTO) 73.7 % (50-80); RED BLOOD COUNT 3.89 10^6/uL (4.70-6.10)
[2019-04-20 05:47] LABS: BUN/CREATININE RATIO 12.35 (6-20)
[2019-04-20 05:50] LABS: PLATELET MORPHOLOGY COMMENT NORMAL MORPHOLOGY (NORM); RBC MORPHOLOGY COMMENT NORMAL MORPHOLOGY (NORM); WBC MORPHOLOGY COMMENT NORMAL MORPHOLOGY (NORM)
[2019-04-20] MEDS: OMEPRAZOLE 40 MG CAPSULE PO SCH (06:45)
[2019-04-20] MEDS: ISOSORBIDE MONONITRATE 30 MG SR 24H TABLET PO SCH (09:33)
[2019-04-20] MEDS: LOSARTAN 50 MG TABLET PO SCH (09:33)
[2019-04-20] MEDS: Montelukast Tab 10 MG TAB PO SCH (09:33)
[2019-04-20] MEDS: ASPIRIN EC 81 MG TABLET PO SCH (09:33)
[2019-04-20] MEDS: MEMANTINE 10 MG TABLET PO SCH ×2 (09:33→21:26)
[2019-04-20] MEDS: AmLODIPine Tab 5 MG TABLET PO SCH (09:33)
[2019-04-20] MEDS: LORATADINE 10 MG TABLET PO SCH (09:33)
[2019-04-20] MEDS: Potassium Chloride Tab 10 MEQ TAB PO SCH ×2 (09:34→21:25)
[2019-04-20] MEDS: Sertraline Tab 100 MG TAB PO SCH (09:34)
[2019-04-20] MEDS: RIVASTIGMINE 13.3 MG TOPICAL SCH (10:14)
[2019-04-20] MEDS ORDERED: Acetaminophen 1000mg Inj 1,000 MG/100 ML VIAL IV PRN (15:12)
[2019-04-20] MEDS: GABAPENTIN 300 MG CAPSULE PO SCH (21:26)
[2019-04-21] MEDS: Cefepime Inj 2 GM in Sodium Chloride 0.9% 100 ML IV SCH (01:35)
[2019-04-21] MEDS: LEVOTHYROXINE 75 MCG TABLET PO SCH (04:47)
[2019-04-21 05:40] LABS: Hematocrit [HCT] 36.3 % (42.0-52.0); Hemoglobin [HGB] 11.9 g/dL (14.0-18.0); MEAN CORPUSCULAR HGB CONC 32.8 g/dL (33-37); MEAN CORPUSCULAR VOLUME 99.5 FL (80-90); RED BLOOD COUNT 3.65 10^6/uL (4.70-6.10)
[2019-04-21 05:58] LABS: BUN/CREATININE RATIO 14.11 (6-20)
[2019-04-21 06:13] LABS: PLATELET MORPHOLOGY COMMENT NORMAL MORPHOLOGY (NORM); RBC MORPHOLOGY COMMENT NORMAL MORPHOLOGY (NORM); WBC MORPHOLOGY COMMENT NORMAL MORPHOLOGY (NORM)
[2019-04-21 06:14] LABS: BAND NEUTROPHILS % 0 % (0-10); BASOPHILS % (MANUAL) 0 % (0-1); EOSINOPHILS % (MANUAL) 2 % (0-8); MONOCYTES % (MANUAL) 6 % (0-12); NEUTROPHILS % (MANUAL) 81 % (50-80)
[2019-04-21] MEDS: OMEPRAZOLE 40 MG CAPSULE PO SCH (07:54)
[2019-04-21] MEDS: HEPARIN 5000 UNIT/1 ML SUBCUT SCH ×3 (07:54→23:14)
[2019-04-21] MEDS: ISOSORBIDE MONONITRATE 30 MG SR 24H TABLET PO SCH (09:31)
[2019-04-21] MEDS: ASPIRIN EC 81 MG TABLET PO SCH (09:31)
[2019-04-21] MEDS: LOSARTAN 50 MG TABLET PO SCH (09:31)
[2019-04-21] MEDS: Montelukast Tab 10 MG TAB PO SCH (09:31)
[2019-04-21] MEDS: LORATADINE 10 MG TABLET PO SCH (09:31)
[2019-04-21] MEDS: Potassium Chloride Tab 10 MEQ TAB PO SCH ×2 (09:32→20:55)
[2019-04-21] MEDS: MEMANTINE 10 MG TABLET PO SCH ×2 (09:32→20:55)
[2019-04-21] MEDS: Sertraline Tab 100 MG TAB PO SCH (09:32)
[2019-04-21] MEDS: AmLODIPine Tab 5 MG TABLET PO SCH (09:32)
[2019-04-21] MEDS: RIVASTIGMINE 13.3 MG TOPICAL SCH (09:32)
[2019-04-21] MEDS: GABAPENTIN 300 MG CAPSULE PO SCH (20:54)
[2019-04-21] MEDS ORDERED: Cefepime Inj 2 GM in Sodium Chloride 0.9% 100 ML IV SCH (23:00)
[2019-04-22] MEDS: LEVOTHYROXINE 75 MCG TABLET PO SCH (05:21)
[2019-04-22] MEDS: LOSARTAN 50 MG TABLET PO SCH (10:20)
[2019-04-22] MEDS: Sertraline Tab 100 MG TAB PO SCH (10:21)
[2019-04-22] MEDS: LORATADINE 10 MG TABLET PO SCH (10:22)
[2019-04-22] MEDS: ISOSORBIDE MONONITRATE 30 MG SR 24H TABLET PO SCH (10:22)
[2019-04-22] MEDS: Potassium Chloride Tab 10 MEQ TAB PO SCH (10:23)
[2019-04-22] MEDS: MEMANTINE 10 MG TABLET PO SCH (10:23)
[2019-04-22] MEDS: AmLODIPine Tab 5 MG TABLET PO SCH (10:23)
[2019-04-22] MEDS: Montelukast Tab 10 MG TAB PO SCH (10:23)
[2019-04-22] MEDS: ASPIRIN EC 81 MG TABLET PO SCH (10:24)
[2019-04-22] MEDS: OMEPRAZOLE 40 MG CAPSULE PO SCH (10:27)
[2019-04-22] MEDS: HEPARIN 5000 UNIT/1 ML SUBCUT SCH (10:27)
[2019-04-22] MEDS: RIVASTIGMINE 13.3 MG TOPICAL SCH (10:28)
[2019-04-22] MEDS ORDERED: LIDOCAINE HCL 2 % 10 ML JELLY URO-JECT TOPICAL PRN (10:51)
[2019-04-22 11:11] VITALS: BP 120/68; RESP 17; TEMP 98.3
[2019-04-22 11:17] LABS: BASOPHILS # (AUTO) 0.06 10*3/UL; BASOPHILS % (AUTO) 0.7 % (0-1); EOSINOPHILS # (AUTO) 0.31 10*3/UL; EOSINOPHILS % (AUTO) 3.8 % (0-8); Hematocrit [HCT] 38.1 % (42.0-52.0); Hemoglobin [HGB] 12.2 g/dL (14.0-18.0); LYMPHOCYTES # (AUTO) 1.43 10*3/uL; MEAN CORPUSCULAR VOLUME 99.5 FL (80-90); MEAN PLATELET VOLUME 9.5 FL (7.4-12.2); MONOCYTES # (AUTO) 0.56 10*3/UL (0.3-0.8); MONOCYTES % (AUTO) 6.9 % (5-15); NEUTROPHILS # (AUTO) 5.73 10*3/UL; NEUTROPHILS % (AUTO) 70.8 % (50-80); RED BLOOD COUNT 3.83 10^6/uL (4.70-6.10)
[2019-04-22 11:18] LABS: PLATELET MORPHOLOGY COMMENT NORMAL MORPHOLOGY (NORM); RBC MORPHOLOGY COMMENT NORMAL MORPHOLOGY (NORM); WBC MORPHOLOGY COMMENT NORMAL MORPHOLOGY (NORM)
[2019-04-22 11:24] LABS: BLOOD UREA NITROGEN 28 mg/dL (7-22); BUN/CREATININE RATIO 15.55 (6-20)
[2019-04-22 13:05] VITALS: O2SAT 91
== END 2019-04-22 14:43 | disposition home or self-care (01) | DRG 690 ==
LOC: ER 17:42 → MED/SURG 20:47
PROVIDERS: ADMIT Family Medicine; ATTEND Family Medicine